=== PATIENT | male | born 1990 | race Caucasian/White ===

== ENCOUNTER 2023-05-20 09:36 | Inpatient (IN) | payer OTHER ==
[2023-05-20] MEDS ORDERED: Ondansetron 4 MG/2 ML SDV IVPUSH STA (09:37)
[2023-05-20] MEDS ORDERED: Sodium Chloride 0.9% 1,000 ML IV ONE (09:37)
[2023-05-20] MEDS ORDERED: Morphine 4 MG/ML VIAL IVPUSH ONE (09:46)
[2023-05-20 10:20] LABS: BASOPHILS ABSOLUTE AUTO 0.02 10^3/uL (0.00-0.50); BASOPHILS PERCENT AUTO 0.2 % (0-1); EOSINOPHILS ABSOLUTE AUTO 0.19 10^3/uL (0.00-1.50); EOSINOPHILS PERCENT AUTO 1.5 % (0-6); HEMATOCRIT 50.9 % (42.0-52.0); HEMOGLOBIN 17.1 g/dL (14.0-18.0); IMMATURE GRAN ABSOLUTE AUTO 0.03 10^3/uL (0.00-0.49); IMMATURE GRAN PERCENT AUTO 0.2 % (0.0-4.9); LYMPHOCYTES ABSOLUTE AUTO 1.49 10^3/uL (0.60-5.00); LYMPHOCYTES PERCENT AUTO 12.2 % (24-44); MEAN CORPUSCULAR HEMOGLOBIN 27.8 pg (27.0-32.0); MEAN CORPUSCULAR HGB CONC 33.6 g/dL (32.0-36.0); MEAN CORPUSCULAR VOLUME 82.8 fL (83.0-97.0); MONOCYTES ABSOLUTE AUTO 0.54 10^3/uL (0.00-1.50); MONOCYTES PERCENT AUTO 4.4 % (0-10); NEUTROPHILS ABSOLUTE AUTO 9.99 x10^3/uL (1.80-8.00); NEUTROPHILS PERCENT AUTO 81.5 % (41-71); PLATELET COUNT,PLT 214 10^3/uL (150-400); RED BLOOD CELL COUNT 6.15 x10^6/uL (4.50-6.00); WHITE BLOOD CELL COUNT,WBC 12.3 10^3/uL (4.0-11.0)
[2023-05-20 10:39] LABS: ALBUMIN 3.7 g/dL (3.4-5.0); BILIRUBIN TOTAL 1.7 mg/dL (0.0-1.0); CALCIUM 8.9 mg/dL (8.4-10.1); CREATININE 1.2 mg/dL (0.7-1.3); EST CRCL DRUG DOSING (CG) 79.75 mL/min; MAGNESIUM 1.9 mg/dL (1.8-2.4); PROTEIN TOTAL,TP 6.9 g/dL (6.4-8.2)
[2023-05-20] MEDS ORDERED: HYDROmorphone 1 MG/ML Syringe IVPUSH ONE (10:49)
[2023-05-20] MEDS: Lactated Ringers 1,000 ML IV SCH ×2 (11:03→19:48)
[2023-05-20 11:28] LABS: APPEARANCE,URINE CLEAR (CLEAR); BILIRUBIN,URINE NEGATIVE (NEGATIVE); COLOR,URINE DARK YELLOW (YELLOW); GLUCOSE,URINE NEGATIVE (NEGATIVE); KETONES,URINE NEGATIVE (NEGATIVE); LEUKOCYTE ESTERASE,URINE NEGATIVE (NEGATIVE); NITRITE,URINE NEGATIVE (NEGATIVE); OCCULT BLOOD,URINE NEGATIVE (NEGATIVE); PH,URINE 6.5 (4.5-8.0); PROTEIN,URINE NEGATIVE (NEGATIVE)
[2023-05-20] MEDS ORDERED: Iopamidol 755 Mg/ML 100 ML Bottle IVPUSH ONE (11:53)
[2023-05-20] MEDS ORDERED: HYDROmorphone 0.5 MG/0.5 ML Syringe IVPUSH ONE (12:08)
[2023-05-20] MEDS ORDERED: HYDROmorphone 1 MG/ML Syringe IVPUSH PRN (12:48)
[2023-05-20] MEDS ORDERED: Promethazine 12.5 MG in Sodium Chloride 0.9% 50 ML IV PRN (13:27)
[2023-05-20] MEDS ORDERED: Polyethylene Glycol 3350 Powder 17 GM Packet PO ONE (13:58)
[2023-05-20] MEDS: Ondansetron 4 MG/2 ML SDV IV PRN ×2 (14:01→18:14)
[2023-05-20] MEDS: oxyCODONE 5 MG Tab PO PRN ×2 (15:31→23:15)
[2023-05-20] MEDS: Ketorolac 30 MG/ML SDV IVPUSH PRN (15:31)
[2023-05-20] MEDS: HYDROmorphone 1 MG/ML Syringe IVPUSH PRN ×3 (17:38→21:59)
[2023-05-20] MEDS ORDERED: Furosemide 80 MG Tab ONE (18:27)
[2023-05-21] MEDS: Ondansetron 4 MG/2 ML SDV IV PRN ×3 (00:10→09:54)
[2023-05-21] MEDS: HYDROmorphone 1 MG/ML Syringe IVPUSH PRN ×6 (00:25→20:47)
[2023-05-21] MEDS: Lactated Ringers 1,000 ML IV SCH ×4 (02:35→22:38)
[2023-05-21 07:56] LABS: BASOPHILS ABSOLUTE AUTO 0.03 10^3/uL (0.00-0.50); BASOPHILS PERCENT AUTO 0.2 % (0-1); EOSINOPHILS ABSOLUTE AUTO 0.04 10^3/uL (0.00-1.50); EOSINOPHILS PERCENT AUTO 0.2 % (0-6); HEMATOCRIT 50.5 % (42.0-52.0); HEMOGLOBIN 16.6 g/dL (14.0-18.0); IMMATURE GRAN ABSOLUTE AUTO 0.04 10^3/uL (0.00-0.49); IMMATURE GRAN PERCENT AUTO 0.2 % (0.0-4.9); LYMPHOCYTES ABSOLUTE AUTO 1.99 10^3/uL (0.60-5.00); LYMPHOCYTES PERCENT AUTO 10.1 % (24-44); MEAN CORPUSCULAR HEMOGLOBIN 27.6 pg (27.0-32.0); MEAN CORPUSCULAR HGB CONC 32.9 g/dL (32.0-36.0); MEAN CORPUSCULAR VOLUME 83.9 fL (83.0-97.0); MONOCYTES PERCENT AUTO 3.5 % (0-10); NEUTROPHILS ABSOLUTE AUTO 16.92 x10^3/uL (1.80-8.00); NEUTROPHILS PERCENT AUTO 85.8 % (41-71); PLATELET COUNT,PLT 264 10^3/uL (150-400); RED BLOOD CELL COUNT 6.02 x10^6/uL (4.50-6.00); WHITE BLOOD CELL COUNT,WBC 19.7 10^3/uL (4.0-11.0)
[2023-05-21 08:09] LABS: ALBUMIN 3.5 g/dL (3.4-5.0); CALCIUM 8.7 mg/dL (8.4-10.1); CREATININE 1.2 mg/dL (0.7-1.3); EST CRCL DRUG DOSING (CG) 79.75 mL/min; MAGNESIUM 1.8 mg/dL (1.8-2.4); POTASSIUM,K 3.8 mEq/L (3.5-5.0); PROTEIN TOTAL,TP 6.7 g/dL (6.4-8.2)
[2023-05-21] MEDS: oxyCODONE 5 MG Tab PO PRN ×2 (09:24→20:21)
[2023-05-21] MEDS ORDERED: hydrALAZINE 20 MG/ML SDV IVPUSH ONE (11:47)
[2023-05-21] MEDS: Ketorolac 30 MG/ML SDV IVPUSH PRN ×2 (11:51→18:03)
[2023-05-21] MEDS ORDERED: Ondansetron 4 MG Tab.DIS PO PRN (12:03)
[2023-05-21] MEDS: Enoxaparin 40 MG/0.4 ML Syringe SUBCUT SCH (12:10)
[2023-05-22] MEDS: Ketorolac 30 MG/ML SDV IVPUSH PRN ×2 (00:07→07:21)
[2023-05-22] MEDS: HYDROmorphone 1 MG/ML Syringe IVPUSH PRN (02:58)
[2023-05-22] MEDS: Lactated Ringers 1,000 ML IV SCH (05:22)
[2023-05-22] MEDS: oxyCODONE 5 MG Tab PO PRN ×2 (05:27→12:33)
[2023-05-22] MEDS: Enoxaparin 40 MG/0.4 ML Syringe SUBCUT SCH (07:21)
[2023-05-22 08:30] LABS: BASOPHILS ABSOLUTE AUTO 0.06 10^3/uL (0.00-0.50); BASOPHILS PERCENT AUTO 0.3 % (0-1); EOSINOPHILS ABSOLUTE AUTO 0.17 10^3/uL (0.00-1.50); HEMATOCRIT 46.5 % (42.0-52.0); HEMOGLOBIN 15.1 g/dL (14.0-18.0); IMMATURE GRAN ABSOLUTE AUTO 0.05 10^3/uL (0.00-0.49); IMMATURE GRAN PERCENT AUTO 0.3 % (0.0-4.9); LYMPHOCYTES ABSOLUTE AUTO 2.31 10^3/uL (0.60-5.00); LYMPHOCYTES PERCENT AUTO 13.3 % (24-44); MEAN CORPUSCULAR HEMOGLOBIN 27.7 pg (27.0-32.0); MEAN CORPUSCULAR HGB CONC 32.5 g/dL (32.0-36.0); MEAN CORPUSCULAR VOLUME 85.3 fL (83.0-97.0); MONOCYTES ABSOLUTE AUTO 0.65 10^3/uL (0.00-1.50); MONOCYTES PERCENT AUTO 3.7 % (0-10); NEUTROPHILS ABSOLUTE AUTO 14.19 x10^3/uL (1.80-8.00); NEUTROPHILS PERCENT AUTO 81.4 % (41-71); PLATELET COUNT,PLT 200 10^3/uL (150-400); RED BLOOD CELL COUNT 5.45 x10^6/uL (4.50-6.00); WHITE BLOOD CELL COUNT,WBC 17.4 10^3/uL (4.0-11.0)
[2023-05-22 08:47] LABS: ALBUMIN 2.8 g/dL (3.4-5.0); BILIRUBIN TOTAL 1.7 mg/dL (0.0-1.0); CALCIUM 8.6 mg/dL (8.4-10.1); CREATININE 1.1 mg/dL (0.7-1.3); POTASSIUM,K 3.7 mEq/L (3.5-5.0); PROTEIN TOTAL,TP 6.2 g/dL (6.4-8.2)
[2023-05-22 09:00] LABS: C-REACTIVE PROTEIN 25.87 mg/dL (<=0.30)
[2023-05-22] MEDS ORDERED: Acetaminophen 325 MG Tab PO ONE (09:25)
[2023-05-22] MEDS ORDERED: Losartan 25 MG Tab PO SCH (09:30)
[2023-05-22] MEDS ORDERED: Take Home: Acetaminophen/oxyCODONE 325-5 MG, 2 Tab Pack PO ONE (13:16)
[2023-05-22] MEDS ORDERED: Losartan 25 MG Tab PO ONE (13:30)
== END 2023-05-22 14:55 | disposition home or self-care (01) | DRG 440 ==
LOC: CC.ED 09:36 → CC.MS 12:13 → UNDOADMIN 12:16
PROVIDERS: ADMIT Nurse Practitioner; ATTEND Nurse Practitioner
DX: K85.00 Idiopathic acute pancreatitis without necrosis or infection (principal); I10 Essential (primary) hypertension; Z20.822 Contact with and (suspected) exposure to COVID-19; Z79.899 Other long term (current) drug therapy
CPT/HCPCS: 36415; 71045; 74177; 80053; 81003; 83605; 83690; 83735; 84484; 85025; 86140; 87040; 87804; 93005; 93010; 96361; 96374; 96375; 96376; 99223; 99233; 99238; 99285-25; A9270-GY; J0360; J1170; J1650; J1885; J2270; J2405; J2550; J3490; J7030; J7120; Q9967; U0002